=== PATIENT | male | born 1985 | race Caucasian/White ===

== ENCOUNTER 2016-05-26 00:16 | Emergency (ER) | payer SELFPAY ==
[~2016-05-26] VITALS: Ht 180.3 cm; Wt 98.4 kg
[2016-05-26] MEDS ORDERED: LORAZEPAM INJ 2 MG/ML VIAL ONE (00:28)
[2016-05-26] MEDS ORDERED: IV NS 0.9% 500 ML BAG IV ONE (00:30)
[2016-05-26] MEDS ORDERED: LORAZEPAM INJ 2 MG/ML VIAL IM ONE (01:00)
[2016-05-26] MEDS ORDERED: IV NS 0.9% 500 ML IV ONE (01:04)
[2016-05-26] MEDS ORDERED: IV SET PRIMARY 1 EA INFUS.SET MC ONE (01:04)
[2016-05-26 01:16] LABS: BASOPHILS # (AUTO) 0.1 /CMM (0.0-0.2); BASOPHILS % (AUTO) 0.7 % (0.0-2.0); DIFF TOTAL % 100 %; EOSINOPHILS # (AUTO) 0.2 /CMM (0.0-0.7); EOSINOPHILS % (AUTO) 3.1 % (0.0-6.0); HEMATOCRIT 45 % (39-51); HEMOGLOBIN 15.4 g/dL (13.5-17.5); LYMPHOCYTES # (AUTO) 2.7 /CMM (0.8-4.8); LYMPHOCYTES % (AUTO) 34.8 % (20.0-44.0); MEAN CORPUSCULAR HEMOGLOBIN 30 PG (26.0-33.0); MEAN CORPUSCULAR HGB CONC 34 g/dl (31.0-36.0); MEAN CORPUSCULAR VOLUME 88 fL (80-96); MONOCYTES # (AUTO) 0.6 /CMM (0.1-1.30); MONOCYTES % (AUTO) 8.2 % (2.0-12.0); NEUTROPHILS # (AUTO) 4.1 /CMM (1.8-8.9); NEUTROPHILS % (AUTO) 53.2 % (43.0-81.0); PLATELET COUNT (AUTO) 225 /CMM (150-450); RED BLOOD CELL COUNT(AUTO) 5.09 MIL/uL (4.5-6.0); WHITE BLOOD COUNT (AUTO) 7.7 K/uL (4.3-11.0)
[2016-05-26 01:24] LABS: CALCIUM, SERUM 8.6 mg/dL (8.5-10.1); POTASSIUM 3.9 mmol/L (3.5-5.1)
[2016-05-26 01:30] LABS: ALBUMIN 4.1 g/dL (3.4-5.0); BILIRUBIN,DIRECT 0.1 mg/dL (0.0-0.2); BILIRUBIN,TOTAL 0.3 mg/dL (0.2-1.0); INDIRECT BILIRUBIN 0.2 mg/dL (0.0-1.1); TOTAL PROTEIN, SERUM 7.1 g/dL (6.4-8.2)
[2016-05-26 02:53] VITALS: BP 124/71
== END 2016-05-26 02:53 | disposition left against medical advice (07) ==
LOC: ER 00:18
DX: F41.9 Anxiety disorder, unspecified (principal)
CPT/HCPCS: 36415; 71010; 80048; 80076; 85025; 93005; 96372; 99285; A4606; G0480; J2060; J7040; Z7610

== ENCOUNTER 2017-03-07 22:50 | Emergency (ER) | payer MEDICAID ==
[~2017-03-07] VITALS: Ht 182.9 cm; Wt 108.9 kg
--- NOTE | 2017-03-07 23:00 | NUR ---
BIBSELF FOR +SI - HI PLAN TO JUMP OFF A BRIDGE. PT AOX3 RR EVEN AND UNLABORED. NO SOB NOTED. NAD NOTED. NO NVD AT THIS TIME. PT NOT DIAPHORETIC. PT WAITING FOR MD ASENCIO. PT PLACED ON SAFETY PRECAUTIONS
--- NOTE | 2017-03-07 23:07 | NUR ---
LAB AT BEDSIDE FOR BLOOD DRAW.
[2017-03-07 23:29] LABS: BASOPHILS # (AUTO) 0.1 /CMM (0.0-0.2); BASOPHILS % (AUTO) 0.6 % (0.0-2.0); EOSINOPHILS # (AUTO) 0.1 /CMM (0.0-0.7); EOSINOPHILS % (AUTO) 1.1 % (0.0-6.0); HEMATOCRIT 51 % (39-51); HEMOGLOBIN 17.3 g/dL (13.5-17.5); LYMPHOCYTES # (AUTO) 2.8 /CMM (0.8-4.8); LYMPHOCYTES % (AUTO) 25.5 % (20.0-44.0); MEAN CORPUSCULAR HEMOGLOBIN 30 PG (26.0-33.0); MEAN CORPUSCULAR HGB CONC 34 g/dl (31.0-36.0); MEAN CORPUSCULAR VOLUME 90 fL (80-96); MONOCYTES # (AUTO) 0.9 /CMM (0.1-1.30); MONOCYTES % (AUTO) 7.9 % (2.0-12.0); NEUTROPHILS % (AUTO) 64.9 % (43.0-81.0); PLATELET COUNT (AUTO) 237 /CMM (150-450); RDW COEFFICIENT OF VARIATION 13.3 (11.5-15.0); RED BLOOD CELL COUNT(AUTO) 5.68 MIL/uL (4.5-6.0); WHITE BLOOD COUNT (AUTO) 10.9 K/uL (4.3-11.0)
[2017-03-07 23:39] LABS: CALCIUM, SERUM 9.9 mg/dL (8.5-10.1); CARBON DIOXIDE 25 mmol/L (21-32); CHLORIDE 104 mmol/L (98-107); CREATININE 1.2 mg/dL (0.6-1.3); GLUCOSE 88 mg/dL (74-106); POTASSIUM 3.7 mmol/L (3.5-5.1); SODIUM SERUM 138 mmol/L (136-145); UREA NITROGEN, BLOOD 17 mg/dL (7-18)
[2017-03-07 23:45] LABS: ALBUMIN 4.7 g/dL (3.4-5.0); ALCOHOL, BLOOD < 3 mg/dL (0-0); ALKALINE PHOSPHATASE 71 U/L (46-116); ASPARTATE AMINOTRANSFERASE 29 U/L (15-37); BILIRUBIN,DIRECT 0.1 mg/dL (0.0-0.2); BILIRUBIN,TOTAL 0.7 mg/dL (0.2-1.0); SALICYLATE 3.4 mg/dL (2.8-20.0); TOTAL PROTEIN, SERUM 8.2 g/dL (6.4-8.2)
--- NOTE | 2017-03-07 23:46 | NUR ---
[employer] AT BEDSIDE
[2017-03-07 23:49] LABS: ACETAMINOPHEN 0 ug/ml (10-30)
[2017-03-08 00:01] LABS: ALANINE AMINOTRANSFERASE 67 U/L (12-78)
--- NOTE | 2017-03-08 01:06 | NUR ---
URINE COLLECTED AND SENT TO LAB
[2017-03-08 01:31] LABS: APPEARANCE,URINE CLEAR (CLEAR); BILIRUBIN,URINE NEGATIVE (NEGATIVE); BLOOD, URINE NEGATIVE Ery/uL (NEGATIVE); COLOR,URINE YELLOW (YELLOW); KETONES,URINE 2+ (NEGATIVE); LEUKOCYTE ESTERASE ,URINE NEGATIVE (NEGATIVE); NITRITE, URINE NEGATIVE (NEGATIVE); PROTEIN,URINE NEGATIVE (NEGATIVE); UGLUCOSE NEGATIVE (NEGATIVE); UROBILINOGEN,URINE 0.2 EU/dL (0.2)
[2017-03-08 01:34] LABS: RBC,URINE NONE SEEN /HPF (0-2)
[2017-03-08 01:35] LABS: BACTERIA,URINE None seen /HPF (None Seen); SQUAMOUS EPITHELIAL CELL,UR Few /HPF (None Seen); WBC,URINE 0-2 /HPF (0-3)
--- NOTE | 2017-03-08 01:37 | NUR ---
ART AT BEDSIDE FOR EVAL.
--- NOTE | 2017-03-08 02:31 | NUR ---
PER ART PT TO BE TRANSFERRED [facility] VOL[facility]
--- NOTE | 2017-03-08 07:42 | NUR ---
SO.ANGIE.VN CALLED, SPOKE WITH MATEO FROM [place], WILL CALL BACK FOR A POSSIBLE BED AT
[2017-03-08 11:13] VITALS: BP 116/70
--- NOTE | 2017-03-08 11:13 | NUR ---
Patient is resting comfortably in bed, VSS
--- NOTE | 2017-03-08 11:31 | NUR ---
CALL FROM MOM SAYING THAT SHE'S ANGIE;ITALO FROM [place], UNABLE TO GIVE ANY INFO PER PATIENT'S REQUEST.
[2017-03-08] MEDS ORDERED: LORAZEPAM 1 MG TABLET ONE (12:38)
--- NOTE | 2017-03-08 12:58 | NUR ---
CALLED ART ELECTRIC TRUCK OPERATOR, HE STATED HE WOULD TRY TO GET PLACEMENT FOR PATIENT VOLUNTARY.
--- NOTE | 2017-03-08 13:03 | NUR ---
CALLED [facility], SPOKE WITH MATEO. DR LIU IS ACCEPTING, NUMBER TO GIVE REPORT .
--- NOTE | 2017-03-08 13:14 | NUR ---
CALLED [facility] FOR TRANSPORT ETA OF 45MINS WAS GIVEN. TRIP#[id number]
--- NOTE | 2017-03-08 13:16 | NUR ---
report given to nilda sanchez
[2017-03-08] MEDS ORDERED: LORAZEPAM 1 MG TABLET PO ONE (13:30)
== END 2017-03-08 14:06 ==
LOC: ER 22:54
DX: R45.851 Suicidal ideations (principal); F12.10 Cannabis abuse, uncomplicated; F31.9 Bipolar disorder, unspecified; F17.200 Nicotine dependence, unspecified, uncomplicated
CPT/HCPCS: 36415; 80048; 80076; 80305; 80329; 81001; 85025; 99285; A4606; G0480 ×2; Z7610; 81000-TC

== ENCOUNTER 2017-03-12 21:35 | Inpatient (IN) | payer MEDICAID ==
[~2017-03-12] VITALS: Ht 182.9 cm; Wt 98.0 kg
--- NOTE | 2017-03-12 21:45 | NUR ---
ALEKSANDR PERRY AT BEDSIDE FOR EVAL.
--- NOTE | 2017-03-12 21:46 | NUR ---
[facility] PAGED.
--- NOTE | 2017-03-12 21:47 | NUR ---
Aaln lee in [facility] - 03/12/17 at 2239 by KRISTIE CALLED [facility]
--- NOTE | 2017-03-12 21:47 | NUR ---
PT TO CT.
--- NOTE | 2017-03-12 21:48 | NUR ---
RN SUP AT BEDSIDE, TELESTROKE MONITOR AT BEDSIDE
--- NOTE | 2017-03-12 21:51 | NUR ---
CALLED [facility] TELESTROKE LINE ,
[2017-03-12] MEDS ORDERED: IOHEXOL-350 100 ML VIAL IV ONE ×2 (21:56→22:13)
[2017-03-12] MEDS ORDERED: IV NS 0.9% 250 ML IV ONE ×2 (21:56→22:13)
--- NOTE | 2017-03-12 22:00 | NUR ---
ALEKSANDR RAY ON THE PHONE WITH DR JEWELL TELESTROKE
[2017-03-12 22:04] LABS: BASOPHILS # (AUTO) 0.3 /CMM (0.0-0.2); BASOPHILS % (AUTO) 2.6 % (0.0-2.0); EOSINOPHILS # (AUTO) 0.2 /CMM (0.0-0.7); EOSINOPHILS % (AUTO) 1.8 % (0.0-6.0); HEMATOCRIT 48 % (39-51); HEMOGLOBIN 15.8 g/dL (13.5-17.5); LYMPHOCYTES # (AUTO) 2.9 /CMM (0.8-4.8); LYMPHOCYTES % (AUTO) 25.6 % (20.0-44.0); MEAN CORPUSCULAR HEMOGLOBIN 30 PG (26.0-33.0); MEAN CORPUSCULAR HGB CONC 33 g/dl (31.0-36.0); MEAN CORPUSCULAR VOLUME 90 fL (80-96); MONOCYTES # (AUTO) 0.7 /CMM (0.1-1.30); MONOCYTES % (AUTO) 5.9 % (2.0-12.0); NEUTROPHILS # (AUTO) 7.2 /CMM (1.8-8.9); NEUTROPHILS % (AUTO) 64.1 % (43.0-81.0); PLATELET COUNT (AUTO) 106 /CMM (150-450); RDW COEFFICIENT OF VARIATION 12.4 (11.5-15.0); RED BLOOD CELL COUNT(AUTO) 5.33 MIL/uL (4.5-6.0); WHITE BLOOD COUNT (AUTO) 11.3 K/uL (4.3-11.0)
[2017-03-12 22:17] LABS: CALCIUM, SERUM 9.2 mg/dL (8.5-10.1); CARBON DIOXIDE 28 mmol/L (21-32); CHLORIDE 109 mmol/L (98-107); CREATININE 1.2 mg/dL (0.6-1.3); GLUCOSE 123 mg/dL (74-106); POTASSIUM 4.5 mmol/L (3.5-5.1); SODIUM SERUM 145 mmol/L (136-145); UREA NITROGEN, BLOOD 19 mg/dL (7-18)
[2017-03-12 22:27] LABS: ACETAMINOPHEN 0 ug/ml (10-30); INR 1.03 (0.87-1.13); PROTHROMBIN TIME 10.7 SECS (9.5-12.7); SALICYLATE 2.6 mg/dL (2.8-20.0); TROPONIN I < 0.017 ng/mL (0.00-0.056)
[2017-03-12 22:28] LABS: ALCOHOL, BLOOD < 3 mg/dL (0-0)
--- NOTE | 2017-03-12 22:35 | NUR ---
PT RETURNED FROM CT.
--- NOTE | 2017-03-12 22:35 | NUR ---
DR. JEWELL SPEAKING TO PT VIA TELESTOKE MONITOR. ALEKSANDR MATTHEWS AT BEDSIDE
--- NOTE | 2017-03-12 22:38 | NUR ---
16 GUAGE RT AC, 18 G LEFT HAND. PT ALERT AWAKE WITH SLURRED SPEECH AND LEFT SIDE WEAKNESS. PT SPEAKING TO TELE NEUROLOGIST NIK. PT IS LAUGHING AND JOKING WITH STAFF.
--- NOTE | 2017-03-12 23:00 | NUR ---
PT REFUSING TPA AT THIS TIME, FAMILY TO PT BEDSIDE WITH
--- NOTE | 2017-03-12 23:07 | NUR ---
ICE CHIPS PROVIDED FOR MD TIN AUTHORIZED
--- NOTE | 2017-03-12 23:22 | NUR ---
CALLED [employer] SALES LEAD GENERATOR WAS PAGED.
[2017-03-12 23:42] VITALS: BP 129/73
[2017-03-12] MEDS ORDERED: ACETAMINOPHEN ES 500 MG TABLET PO STA (23:43)
[2017-03-12] MEDS ORDERED: ACETAMINOPHEN ES 500 MG TABLET ONE (23:43)
--- NOTE | 2017-03-12 23:46 | NUR ---
PT ROOM RECEIVED TELE 310 BED #2, REPORT TO BE CALLED NOW
--- NOTE | 2017-03-13 | NUR ---
REPORT GIVEN TO RECEIVING RN, PT STABLE FOR TRANSPORT GIVEN 1GM TYLENOL FOR STATED 4/10 HEAD PAIN. VSS PT TRANSPORTED TO TELE 310 #2, IV INTACT LT HAND
[2017-03-13] MEDS ORDERED: IV NS 0.9% 1,000 ML IV PRN (00:16)
[2017-03-13] MEDS ORDERED: Z GUARD REMEDY 2 OZ OINT TP PRN (00:30)
[2017-03-13] MEDS ORDERED: ONDANSETRON HCL/PF 4 MG/2 ML VIAL IVP PRN (00:30)
[2017-03-13] MEDS ORDERED: MAG HYDROX/AL HYDROX/SIMETH 30 ML UDC PO PRN (00:30)
[2017-03-13] MEDS ORDERED: ENALAPRILAT INJ (1.25 MG/ML) 1.25 MG/ML VIAL IV PRN (00:30)
[2017-03-13] MEDS ORDERED: ENOXAPARIN SODIUM 40 MG/0.4 ML DISP.SYRIN SQ SCH (00:30)
[2017-03-13] MEDS ORDERED: LORAZEPAM INJ 2 MG/ML VIAL IV PRN (00:30)
[2017-03-13] MEDS ORDERED: ZOLPIDEM TARTRATE 5 MG TABLET PO PRN (00:30)
[2017-03-13] MEDS ORDERED: MAGNESIUM HYDROXIDE 30 ML UDC PO PRN (00:30)
[2017-03-13] MEDS ORDERED: HYDROCODONE/APAP 5/325MG 1 EACH TABLET PO PRN (00:30)
[2017-03-13] MEDS ORDERED: ACETAMINOPHEN 325 MG TABLET PO PRN (00:30)
--- NOTE | 2017-03-13 00:40 | NUR ---
RN NOTES RECEIVED PATIENT ACCOMPANIED BY ER STUFF. PATIENT AMBULATORY. STEADY GAIT. GIRLFRIEND CAME. PATIENT REFUSED TO STAY AT THE HOSPITAL AND WANTED TO SIGN OUT AMA. ARGUED WITH GIRLFRIEND. STARTED TO BE AGITATED. CALLED [facility].
--- NOTE | 2017-03-13 00:40 | NUR ---
ARRIVED TO FLOOR [facility] BY ER STAFF, ABLE TO WALK WITH STEADY GAIT TO HIS ROOM 310-2. DELIGHTED TO SEE SECURED ENTRANCE MONITOR AROUND. REFUSED TO GO TO BED. GF CAME REFUSED TO STAY, HAD ARGUMENT WITH GF. PATIENT BECOMING MORE AGITATED, WANTED TO SIGN OUT AMA. WAS VERBALLY ABUSIVE. GF ABOUT TO LEAVE AND PATIENT FOLLOWED GF GOING TO ELEVATOR. PULLED EMERGENCY BUTTON. CALLED [facility]. BECOMING MORE AGRRESSIVE. SIGNED PAPER FOR AMA. HL TAKEN OUT BY ER STAFF. UNCOOPERATIVE LEFT THE FLOOR WITH HOSPITAL GOWN. SHOOTER HELPER AWARE. ESCORTED OUT BY HOSPITAL STAFF AT 0050.
--- NOTE | 2017-03-13 00:45 | NUR ---
RN NOTES PATIENT IS VERY ANGRY. AMA SIGNED. IV HL REMOVED. WENT OUT WITH HIS GIRLFRIEND. ESCORTED BY SECURITY.
--- NOTE | 2017-03-13 00:50 | NUR ---
RN NOTES FATHER CAME. INFORMED THAT PATIENT LEFT WITH HIS GIRLFRIEND.
[2017-03-13 01:08] LABS: THYROID STIMULATING HORMONE 5.027 uIU/mL (0.358-3.74)
[2017-03-13] MEDS ORDERED: ASPIRIN EC 325 MG TABLET.DR PO SCH (09:00)
[2017-03-13] MEDS ORDERED: SIMVASTATIN 20 MG TABLET PO SCH (22:00)
== END 2017-03-13 00:50 | disposition left against medical advice (07) | DRG 45 ==
LOC: ER 21:38 → TELE 23:29
PROVIDERS: ADMIT Internal Medicine; ATTEND Internal Medicine
DX: I63.9 Cerebral infarction, unspecified (principal); G45.9 Transient cerebral ischemic attack, unspecified; R53.1 Weakness; F32.9 Major depressive disorder, single episode, unspecified; F19.10 Other psychoactive substance abuse, uncomplicated; F41.9 Anxiety disorder, unspecified; D72.829 Elevated white blood cell count, unspecified
CPT/HCPCS: 36415; 70450-TC; 70496-TC; 70498-TC; 71010-TC; 80048-TC; 82962-TC; 83880; 84443-TC; 84484-TC; 85025-TC; 85652-TC; 85730-TC; 87081-TC; A4606; G0480; J7050; Q9967; Z7610

== ENCOUNTER 2017-03-13 07:14 | Emergency (ER) | payer MEDICAID, OTHER ==
[~2017-03-13] VITALS: Ht 182.9 cm; Wt 99.8 kg
--- NOTE | 2017-03-13 07:20 | NUR ---
PT BIBRA 99/[employer] FROM HOME, +SI/-HI NO ACTIVE PLANS. ADMITS TO TAKING 6 TABS OF KLONIPIN, MARIJUANA AND COCAINE. CURRENTLY A/O X 4, DROWSY, BUT BREATHING EVEN AND UNLABORED. NO SOB. VITALS STABLE. SAFETY AND COMFORT MEASURES IN PLACE. AWAITING MD ORDERS.
[2017-03-13] MEDS ORDERED: IV NS 0.9% 1,000 ML BAG IV ONE (08:00)
--- NOTE | 2017-03-13 08:15 | NUR ---
NEW IV STARTED ON LAC, 20 G. BLOOD DRAWN AND SENT TO LAB.
--- NOTE | 2017-03-13 08:20 | NUR ---
URINE OBTAINED AND SENT TO LAB.
[2017-03-13 08:23] LABS: BASOPHILS # (AUTO) 0.1 /CMM (0.0-0.2); BASOPHILS % (AUTO) 0.7 % (0.0-2.0); EOSINOPHILS # (AUTO) 0.1 /CMM (0.0-0.7); EOSINOPHILS % (AUTO) 1.3 % (0.0-6.0); HEMATOCRIT 47 % (39-51); HEMOGLOBIN 15.8 g/dL (13.5-17.5); LYMPHOCYTES # (AUTO) 1.9 /CMM (0.8-4.8); LYMPHOCYTES % (AUTO) 21.7 % (20.0-44.0); MEAN CORPUSCULAR HEMOGLOBIN 30 PG (26.0-33.0); MEAN CORPUSCULAR HGB CONC 33 g/dl (31.0-36.0); MEAN CORPUSCULAR VOLUME 90 fL (80-96); MONOCYTES # (AUTO) 0.6 /CMM (0.1-1.30); MONOCYTES % (AUTO) 7.4 % (2.0-12.0); NEUTROPHILS # (AUTO) 5.9 /CMM (1.8-8.9); NEUTROPHILS % (AUTO) 68.9 % (43.0-81.0); PLATELET COUNT (AUTO) 206 /CMM (150-450); RDW COEFFICIENT OF VARIATION 12.6 (11.5-15.0); RED BLOOD CELL COUNT(AUTO) 5.26 MIL/uL (4.5-6.0); WHITE BLOOD COUNT (AUTO) 8.6 K/uL (4.3-11.0)
[2017-03-13 08:53] LABS: APPEARANCE,URINE CLEAR (CLEAR); BILIRUBIN,URINE NEGATIVE (NEGATIVE); BLOOD, URINE TRACE-INTA Ery/uL (NEGATIVE); COLOR,URINE YELLOW (YELLOW); KETONES,URINE NEGATIVE (NEGATIVE); LEUKOCYTE ESTERASE ,URINE NEGATIVE (NEGATIVE); NITRITE, URINE NEGATIVE (NEGATIVE); PROTEIN,URINE NEGATIVE (NEGATIVE); UGLUCOSE NEGATIVE (NEGATIVE); UROBILINOGEN,URINE 0.2 EU/dL (0.2)
[2017-03-13 08:53] LABS: ALANINE AMINOTRANSFERASE 41 U/L (12-78); ALBUMIN 4.1 g/dL (3.4-5.0); ALCOHOL, BLOOD < 3 mg/dL (0-0); ALKALINE PHOSPHATASE 62 U/L (46-116); ASPARTATE AMINOTRANSFERASE 25 U/L (15-37); BILIRUBIN,TOTAL 0.1 mg/dL (0.2-1.0); CALCIUM, SERUM 9.3 mg/dL (8.5-10.1); CARBON DIOXIDE 30 mmol/L (21-32); CHLORIDE 107 mmol/L (98-107); GLUCOSE 116 mg/dL (74-106); POTASSIUM 4.2 mmol/L (3.5-5.1); SODIUM SERUM 143 mmol/L (136-145); TOTAL PROTEIN, SERUM 7.4 g/dL (6.4-8.2); UREA NITROGEN, BLOOD 14 mg/dL (7-18)
[2017-03-13 09:03] LABS: BACTERIA,URINE None seen /HPF (None Seen); SQUAMOUS EPITHELIAL CELL,UR Rare /HPF (None Seen); WBC,URINE 0-2 /HPF (0-3)
[2017-03-13 09:13] LABS: ACETAMINOPHEN 0 ug/ml (10-30)
--- NOTE | 2017-03-13 09:33 | NUR ---
IV removed. Catheter intact and site benign. Pressure and 4x4 applied to site. No bleeding noted. Patient discharged in custody in stable condition. Written and verbal after care instructions given. Patient verbalizes understanding of instruction.
[2017-03-13 09:35] VITALS: BP 126/76
== END 2017-03-13 09:35 ==
LOC: ER 07:16
DX: T42.4X1A Poisoning by benzodiazepines, accidental (unintentional), initial encounter (principal); T40.7X1A Poisoning by cannabis (derivatives), accidental (unintentional), initial encounter; F17.200 Nicotine dependence, unspecified, uncomplicated; F10.10 Alcohol abuse, uncomplicated
CPT/HCPCS: 36415; 80048; 80076; 80305; 80329; 81001; 85025; 96360; 99284; 99406; A4606; G0480 ×2; J7030; Z7610; 81000-TC